=== PATIENT | female | born 1985 | race Caucasian/White ===

== ENCOUNTER 2017-01-10 19:07 | Emergency (ER) | payer SELFPAY ==
[2017-01-10 19:33] LABS: BILIRUBIN,URINE NEGATIVE (NEGATIVE); PH,URINE 5.5 PH (5.0-7.5)
[2017-01-10 19:36] LABS: UA CHARGE (STRIP ONLY) YES; UR CULTURE IF IND NOT INDICATED
[2017-01-10 20:40] LABS: BASOPHILS # (AUTO) 0.1 10^3/uL (0.0-0.1); EOSINOPHILS # (AUTO) 0.1 10^3/uL (0.0-0.7); EOSINOPHILS % (AUTO) 1.2 %; HCT - HEMATOCRIT 38.3 % (37.0-47.0); HGB - HEMOGLOBIN 13.2 g/dL (12.0-16.0); LYMPHOCYTES # (AUTO) 1.8 10^3/uL (1.5-3.5); LYMPHOCYTES % (AUTO) 36.3 %; MEAN CORPUSCULAR HEMOGLOBIN 30.5 pg (27.0-31.0); MEAN CORPUSCULAR HGB CONC 34.4 g/dL (32.0-36.0); MEAN CORPUSCULAR VOLUME 88.8 fL (81.0-99.0); MEAN PLATELET VOLUME 8.8 fL (7.9-10.8); MONOCYTES # (AUTO) 0.4 10^3/uL (0.0-1.0); MONOCYTES % (AUTO) 8.1 %; NEUTROPHILS # (AUTO) 2.6 10^3/uL (1.5-6.6); NEUTROPHILS % (AUTO) 52.4 %; NUCLEATED RED BLOOD CELLS AUTO 0.1 /100WBC; RED BLOOD COUNT 4.31 10^6/uL (4.20-5.40); RED CELL DISTRIBUTION WIDTH 12.6 % (12.0-15.0); UNCORRECTED WHITE BLOOD COUNT 4.9 x10^3/uL; WHITE BLOOD COUNT 4.9 x10^3/uL (4.8-10.8)
[2017-01-10 20:46] LABS: ALBUMIN/GLOBULIN RATIO 1.6 (1.0-2.2); BILIRUBIN,TOTAL 1.1 mg/dL (0.2-1.0); CALCIUM 9.3 mg/dL (8.5-10.3); CREATININE 0.5 mg/dL (0.4-1.0); POTASSIUM 3.5 mmol/L (3.5-5.0); TOTAL PROTEIN 7.2 g/dL (6.7-8.2)
[2017-01-10 21:29] LABS: HCG UR QUAL POSITIVE
[2017-01-10 22:12] VITALS: BP 101/61
--- NOTE | 2017-01-10 22:30 | Ultrasound Preliminary Report ---
Exam: US OB First Trimester IMPRESSION: 1. Intrauterine gestational sac containing a yolk sac with size corresponding to a gestational age of 5 weeks 5 days, concordant with expected dates based on given LMP. No pole is seen at this shawna e. Recommend follow-up ultrasound in 7-10 days to assess viability. 2. Small perigestational bleed. [facility] SITE ID: [id number]
--- NOTE | 2017-01-10 22:33 | Ultrasound Report ---
REVISED: THIS REPORT WAS ORIGINALLY SIGNED ON 01/10/2017 @ 2233 ORDERS LINKED ON 01/24/2017 EXAM: FIRST TRIMESTER OBSTETRIC ULTRASOUND (Less than 11 weeks) EXAM DATE: 01/10/2017 09:47 PM. CLINICAL HISTORY: Left lower quadrant pain. Vaginal bleeding. LMP: 12/01/2016. COMPARISONS: None. TECHNIQUE: Transabdominal and transvaginal ultrasound examination with static image documentation. CLINICAL DATES: EGA 5 weeks 5 days with ANGELINA 09/07/2017 based on LMP 12/01/2016. ASSESSMENT: Gestational Sac: Single intrauterine. Mean gestational sac diameter: 10.2 mm = 5 weeks 5 days. Embryo: Not seen. Cardiac activity: Not seen. Yolk sac: 3 mm. Early placenta: Not visible at this gestational age. Other: Hypoechoic collection inferior to the gestational sac measuring 2.0 x 0.6 x 1.8 cm, compatible with a brianna-gestational bleed.. MATERNAL STRUCTURES: Uterus: Retroverted. Unremarkable. Cervix: Closed. Right Ovary: 3.6 x 2.5 x 2.5 cm, volume 11.9 cc. Unremarkable. Left Ovary: 3.7 x 2.1 x 2.9 cm, volume 12.1 cc. Contains a corpus luteum cyst measuring 1.3 x 1.0 x 1.0 cm. Free Fluid: None. Other: None. IMPRESSION: 1. Intrauterine gestational sac containing a yolk sac with size corresponding to a gestational age of 5 weeks 5 days, concordant with expected dates based on given LMP. No pole is seen at this time. Recommend follow-up ultrasound in 7-10 days to assess viability. 2. Small perigestational bleed. [facility] Referring Provider Line: [phone] SITE ID: [id number]
--- NOTE | 2017-01-10 22:43 | ED Physician Documentation ---
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 LMP was about 8 weeks ago. Patient is presenting to the emergency department for left sided pelvic pain and vaginal bleeding. patient states that her symptoms started yesterday and they have become progressively worse. Patient had a confirmed test in the clinic but has not had any imaging. Patient is concerned for an eptopic . Review of Systems Constitutional: denies: Fever, Chills Eyes: denies: Decreased vision Ears: denies: Ear pain, Drainage/discharge Nose: denies: Rhinorrhea / runny nose, Congestion Throat: denies: Sore throat Cardiac: denies: Chest pain / pressure, Palpitations Respiratory: denies: Dyspnea, Cough, Wheezing GI: reports: Abdominal Pain, Nausea, Vomiting. denies: Constipation, Diarrhea : reports: Vaginal bleeding. denies: Dysuria, Frequency Skin: denies: Rash, Lesions Musculoskeletal: denies: Neck pain, Back pain Neurologic: denies: Generalized weakness, Focal weakness Psychiatric: denies: Depressed, Suicidal Immunocompromised: denies: Immunocompromised PD PAST MEDICAL HISTORY - Past Medical History Past Medical History: No - Past Surgical History Past Surgical History: Yes HEENT: Tonsil/Adenoidectomy - Present Medications Home Medications: Ambulatory Orders Medication Instructions Recorded Confirmed Anxiety Med Unknown Name 0 mg 08/03/16 Control Pill 0 mg 08/03/16 Cyclobenzaprine [Flexeril] 10 mg 08/03/16 HYDROcod/ACETAM 5/325 [Kenesaw 5/325] 1 - 2 ea PO Q6H PRN #15 tablet 08/03/16 Ondansetron Odt [Zofran Odt] 4 mg 08/03/16 Doxylamine/Pyridoxine HCl 1 each PO BID PRN #20 tablet. 01/10/17 [Lisa Boston 10-10 mg Tablet] - Allergies Allergies/Adverse Reactions: Allergies Allergy/AdvReac Type Severity Reaction Status Date / Time No Known Drug Allergies Allergy Verified 01/10/17 19:15 - Social History Does the pt smoke?: No Smoking Status: Never smoker Does the pt drink ETOH?: No Does the pt have substance abuse?: No - Immunizations Immunizations are current?: Yes - POLST Patient has POLST: No PD ED PE NORMAL - Vitals Vital signs reviewed: Yes - General General: Alert and oriented X 3, No acute distress, Well developed/nourished - HEENT HEENT: Atraumatic, PERRL, Pharynx benign - Neck Neck: Supple, no meningeal sign, No JVD - Cardiac Cardiac: RRR, No murmur, No rub - Respiratory Respiratory: No respiratory distress, Clear bilaterally - Derm Derm: Normal color, Warm and dry, No rash - Extremities Extremities: No deformity, No tenderness to palpate, Normal ROM s pain - Neuro Neuro: Alert and oriented X 3, 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 No: Distended, Rebound, Guarding Results - Vitals Vitals: Vital Signs - 24 hr 01/10/17 01/10/17 01/10/17 19:16 20:26 22:11 Temperature 36.0 C L 36.2 C L Heart Rate 68 65 66 Respiratory 18 16 18 Rate Blood Pressure 112/79 118/72 101/61 O2 Saturation 100 99 99 Oxygen O2 Source Room air - Labs Labs: Laboratory Tests 01/10/17 01/10/17 01/10/17 19:25 19:25 20:17 WBC 4.9 RBC 4.31 Hgb 13.2 Hct 38.3 MCV 88.8 MCH 30.5 MCHC 34.4 RDW 12.6 Plt Count 227 MPV 8.8 Neut # 2.6 Lymph # 1.8 Vermillion # 0.4 Eos # 0.1 Baso # 0.1 Absolute Nucleated RBC 0.00 Nucleated RBCs 0.1 Sodium Potassium Chloride Carbon Dioxide Anion Gap BUN Creatinine Estimated GFR (MDRD) Glucose Calcium Total Bilirubin AST ALT Alkaline Phosphatase Total Protein Albumin Globulin Albumin/Globulin Ratio Lipase HCG, Quant Urine Color YELLOW Urine Clarity CLEAR Urine pH 5.5 Ur Specific [place] >=1.030 H >=1.030 H Urine Protein NEGATIVE Urine Glucose (UA) NEGATIVE Urine Ketones NEGATIVE Urine Occult Blood NEGATIVE Urine Nitrite NEGATIVE Urine Bilirubin NEGATIVE Urine Urobilinogen 0.2 (NORMAL) Ur Leukocyte Esterase NEGATIVE Ur Microscopic Review NOT INDICATED Urine Culture Comments NOT INDICATED Urine HCG, Qual POSITIVE Blood Type 01/10/17 01/10/17 01/10/17 20:17 20:17 20:17 WBC RBC Hgb Hct MCV MCH MCHC RDW Plt Count MPV Neut # Lymph # [place] # Eos # Baso # Absolute Nucleated RBC Nucleated RBCs Sodium 137 Potassium 3.5 Chloride 103 Carbon Dioxide 27 Anion Gap 7.0 BUN 10 Creatinine 0.5 Estimated GFR (MDRD) 146 Glucose 84 Calcium 9.3 Total Bilirubin 1.1 H AST 16 ALT 15 Alkaline Phosphatase 37 L Total Protein 7.2 Albumin 4.4 Globulin 2.8 Albumin/Globulin Ratio 1.6 Lipase 22 HCG, Quant 8389.00 Urine Color Urine Clarity Urine pH Ur Specific [place] Urine Protein Urine Glucose (UA) Urine Ketones Urine Occult Blood Urine Nitrite Urine Bilirubin Urine Urobilinogen Ur Leukocyte Esterase Ur Microscopic Review Urine Culture Comments Urine HCG, Qual Blood Type A POSITIVE - Rads (name of study) pelvic ultrasound Radiology: Final report received (intrauterine gestational sac at 5 weeks five days, but no pole) PD MEDICAL DECISION MAKING - ED course Complexity details: reviewed old records, reviewed results, re-evaluated patient , considered differential, d/w patient ED course: Patient was seen and examined at bedside. Patient's vital signs were within normal limits. IV access was gained, labs were drawn. patient was sent for imaging. When patient returned from imaging the results were reviewed. there was a gestational sac but no pole appreciated. Patient was made aware of the findings and appropriate follow up. Patient's was rh positive. Patient required no further inpatient work up and was stable for discharge with outpatient follow up. Departure - Departure Disposition: 01 Home, Self Care Clinical Impression: Threatened in early Condition: Good Instructions: ED Miscarriage Poss Follow-Up: primary,care provider [Other] - Tomorrow (call the ob to schedule a follow up appointment for next week) Prescriptions: Doxylamine/Pyridoxine HCl [Lisa Boston 10-10 mg Tablet] 1 each PO BID PRN #20 tablet. PRN Reason: Nausea / Vomiting Comments: Your ultrasound today showed a gestational sac consistent with a of 5 weeks. there was no pole appreciated so it is either early in or you are having a miscarriage. You will need to follow up with your ob in the next few days for a repeat ultrasound in 7-10 days. You can take tylenol for pain and dicligis or olivia for nausea/vomiting. You may return to the emergency department at any time for new, worsening or uncontrollable symptoms. Discharge Date/Time: 01/10/17 23:03
== END 2017-01-10 23:03 | disposition home or self-care (01) ==
LOC: ED 19:07
DX: O20.0 Threatened abortion (principal); Z3A.01 Less than 8 weeks gestation of pregnancy
CPT/HCPCS: 36415; 76801; 76817; 80053; 81001; 81003; 81025; 83690; 84702; 85025; 86900; 86901; 87086; 99283

== ENCOUNTER 2017-06-28 14:24 | Outpatient (CLI) | payer OTHER ==
[2017-06-28 15:24] VITALS: BP 112/68
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
== END 2017-06-28 17:45 | disposition home or self-care (01) ==
LOC: WFO 14:24 → FBP 14:26 → WFO 17:45
PROVIDERS: ATTEND Obstetrics & Gynecology
DX: Z34.83 Encounter for supervision of other normal pregnancy, third trimester (principal); Z84.89 Family history of other specified conditions
CPT/HCPCS: 82731; 99214

== ENCOUNTER 2017-11-04 14:45 | Emergency (ER) | payer OTHER ==
[2017-11-04 14:55] VITALS: BP 109/75
== END 2017-11-04 15:20 | disposition left against medical advice (07) ==
LOC: ED 14:45
DX: Z53.21 Procedure and treatment not carried out due to patient leaving prior to being seen by health care provider (principal)